=== PATIENT | male | born 1990 | race Caucasian/White ===

== ENCOUNTER 2022-12-25 14:15 | Emergency (ER) | payer OTHER ==
[~2022-12-25] VITALS: Ht 175.3 cm; Wt 74.1 kg
[2022-12-25 14:16] VITALS: BP 129/78
[2022-12-25] MEDS ORDERED: TRIA1CR80 TOP (15:20)
[2022-12-25] MEDS ORDERED: CLAR10CA3 PO (15:20)
[2022-12-25 15:36] LABS: BASO # 0.1 10^3/uL (0.0-0.2); EOS # 0.4 10^3/uL (0.0-0.5); EOS % 6.9 % (0.0-3.0); HEMATOCRIT 48.2 % (42.0-52.0); HEMOGLOBIN 16.4 g/dl (13.5-17.5); LYMPH # 1.6 10^3/uL (1.5-5.0); LYMPH % 26.7 % (24.0-44.0); MEAN CORPUSCULAR HEMOGLOBIN 29.2 pg (27.0-33.0); MEAN CORPUSCULAR VOLUME 85.9 fl (80.0-96.0); MONO # 0.7 10^3/uL (0.0-0.8); MONO % 11.6 % (2.0-8.0); NEUTROPHILS # 3.3 10^3/uL (1.5-8.5); NEUTROPHILS % 53.5 % (36.0-66.0); PLATELET COUNT, AUTOMATED 319 10^3/uL (150-450); RED BLOOD COUNT 5.61 10^6/uL (4.30-6.10); WHITE BLOOD COUNT 6.1 10^3/uL (4.0-10.0)
[2022-12-25 16:03] LABS: ALBUMIN 4.5 G/DL (3.2-5.2); ALKALINE PHOSPHATASE 62 U/L (46-116); ALT/SGPT 27 U/L (7.0-40); AST/SGOT 24 U/L (<34); BILIRUBIN,DIRECT 0.9 MG/DL (<0.4); BILIRUBIN,TOTAL 3.8 MG/DL (0.3-1.2); BLOOD UREA NITROGEN 13 MG/DL (9-23); CALCIUM LEVEL 9.9 MG/DL (8.5-10.1); CARBON DIOXIDE LEVEL 29 MMOL/L (20-31); CHLORIDE LEVEL 104 MMOL/L (98-107); CREATININE FOR GFR 1.05 MG/DL (0.70-1.30); GLOMERULAR FILTRATION RATE > 60.0 (>60); GLUCOSE, FASTING 70 MG/DL (60-100); POTASSIUM SERUM 4.6 MMOL/L (3.5-5.1); SODIUM LEVEL 139 MMOL/L (136-145); THYROID STIMULATING HORMONE 1.341 uIU/ML (0.55-4.78); TOTAL PROTEIN 7.6 G/DL (5.7-8.2)
== END 2022-12-25 15:29 | disposition home or self-care (01) ==
LOC: M ED 14:15
DX: R21 Rash and other nonspecific skin eruption (principal); R53.83 Other fatigue; Z79.899 Other long term (current) drug therapy

== ENCOUNTER 2025-01-13 11:29 | Emergency (ER) | payer OTHER ==
[~2025-01-13] VITALS: Ht 175.3 cm; Wt 80.3 kg
[~2025-01-13 11:29] MED LIST: CLAR10CA3 PO; TRIA1CR80 TOP
[2025-01-13] MEDS ORDERED: METH-1164 PO (12:32)
[2025-01-13] MEDS ORDERED: LIDOCAINE 4% TOPICAL SOLN 50ML BTL TOP ONE (12:35)
[2025-01-13] MEDS ORDERED: LIDOCAINE 4% CREAM 5GM (LMX4) TOP ONE (12:40)
[2025-01-13] MEDS: KETOROLAC 60MG 2ML VIAL IM ONE (12:48)
[2025-01-13 12:49] VITALS: BP 122/76; TEMP 97.7; O2SAT 96
== END 2025-01-13 12:50 | disposition home or self-care (01) ==
LOC: M ED 11:29
DX: M62.838 Other muscle spasm (principal); Z79.899 Other long term (current) drug therapy
CPT/HCPCS: 96372; 99283; J1885

== ENCOUNTER 2025-08-23 11:37 | Emergency (ER) | payer OTHER ==
[~2025-08-23] VITALS: Ht 175.3 cm; Wt 74.2 kg
[~2025-08-23 11:37] MED LIST changes: +METH-1164 PO
[2025-08-23 11:40] VITALS: BP 123/78; TEMP 98.2; O2SAT 98
== END 2025-08-23 13:14 | disposition home or self-care (01) ==
LOC: M ED 11:37
DX: J02.9 Acute pharyngitis, unspecified (principal)